=== PATIENT | male | born 1975 | race Caucasian/White ===

== ENCOUNTER → 2017-06-01 | Outpatient (CLI) | payer OTHER ==
[~2017-06-01] MED LIST: HYDR-5688 PO; IBUP-1427 PO; IBUP-1450 PO; LISI-461 PO; VENL75CA73 PO
--- NOTE | 2017-06-01 14:38 | DIAGNOSTIC IMAGING REPORT ---
ADDENDUM ADDITIONAL IMPRESSION: 2. Cystic structure in the region of the rectum, indeterminate. Further evaluation could be considered as clinically warranted. The report will be called/faxed according to standard departmental protocol. Electronically signed by: García Engel M.D. 06/01/2017 7:47 PM Dictated Date/Time: 06/01/2017 7:47 PM ORIGINAL REPORT LUMBAR SPINE W/O CONTRAST CLINICAL HISTORY: 41 years-old Male presenting with LOW BACK PAIN. TECHNIQUE: Multisequence, multiplanar MR imaging of the lumbar spine was performed without the use of intravenous contrast. IV contrast: None. COMPARISON: Plain radiograph from 05/18/2017. FINDINGS: Localizer images: Cystic structure in the region of the rectum is indeterminate. Normal lumbar lordosis. Minimal bony edema suggested along the right anterior aspect of the superior endplate of L3, likely degenerative in etiology. The remainder of bone marrow signal intensity is normal. Vertebral bodies maintain normal height and alignment. Intervertebral disc desiccation from T12-L1 through L3-4. Disc height maintained. Degenerative changes further detailed below: L1-2: No significant neural foraminal or spinal canal narrowing. L2-3: Minimal anterior disc bulge. No significant neural foraminal or spinal canal narrowing. L3-4: Focal annular fissure suggested. Mild disc bulge results in mild bilateral neural foraminal narrowing. No significant spinal canal narrowing. L4-5: Left eccentric disc bulge asymmetrically effaces the far lateral aspect of the left neural foramen. Mild right and moderate left neural foraminal narrowing. No significant spinal canal narrowing. L5-S1: No significant spinal canal or neural foraminal narrowing. Spinal cord ends in good position at the level of L1. Cauda equina normal in morphology. Paraspinal musculature normal appearing. IMPRESSION: 1. 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 No evidence of spinal canal stenosis. Electronically signed by: García Engel M.D. 06/01/2017 2:37 PM Dictated Date/Time: 06/01/2017 2:30 PM
== END | disposition home or self-care (01) ==
LOC: C.MRI 13:44
PROVIDERS: ATTEND Physician Assistant
DX: M54.5 Low back pain (principal); K62.89 Other specified diseases of anus and rectum